=== PATIENT | female | born 1960 | race Caucasian/White ===

== ENCOUNTER 2016-04-11 15:45 | Emergency (ER) | payer BC ==
[2016-04-11 16:02] VITALS: BP 136/79
--- NOTE | 2016-04-11 16:38 | UC ---
Throat Pain/Nasal Kranthi HPI - HPI Summary HPI Summary: complaint of nasal congestion and cough that started 12 days ago started with a sore throat which resolved for the last 3 days is having more sinus congestion pain in her face and pressure in the front of her head sometimes her ears are painful intermittent headaches denies fever and chills taking ibuprofen and nurys seltzer plus without much relief. - History of Current Complaint Chief Complaint: UCGeneralIllness Stated Complaint: SINUS COMPLAINT Time Seen by Provider: 04/11/16 16:31 Hx Obtained From: Patient - Allergies/Home Medications Allergies/Adverse Reactions: Allergies Allergy/AdvReac Type Severity Reaction Status Date / Time Loratadine [From Claritin] Allergy Palpitation Verified 04/11/16 16:03 s Home Medications: Home Medications Ascorbic Acid TAB* [Vitamin C TAB*] 500 mg PO DAILY 04/11/16 [History Confirmed 04/11/16] Glucosamine Hydrochloride [Glucosamine] 500 mg PO DAILY 04/11/16 [History Confirmed 04/11/16] Multivitamins/Minerals TAB* [Theragran/minerals TAB*] 1 tab PO DAILY 04/11/16 [ History Confirmed 04/11/16] [place]-3 Fatty Acids [Fish Oil] 1,000 mg PO DAILY 04/11/16 [History Confirmed ] PMH/Surg Hx/FS Hx/Imm Hx Previously Healthy: Yes - Surgical History Surgical History: Yes Surgery Procedure, Year, and Place: hysterectomy 05/2015 - Family History Known Family History: Positive: Cardiac Disease - mother, Diabetes - mother Negative: Hypertension - Social History Occupation: Employed Full-time Lives: With Family Alcohol Use: None Substance Use Type: None Smoking Status (MU): Never Smoked Tobacco Review of Systems Constitutional: Negative Skin: Negative Eyes: Negative ENT: Ear Ache, Nasal Discharge Respiratory: Cough Cardiovascular: Negative Gastrointestinal: Negative Genitourinary: Negative Motor: Negative Neurovascular: Negative Musculoskeletal: Negative Neurological: Negative Psychological: Negative All Other Systems Reviewed And Are Negative: Yes Physical Exam Triage Information Reviewed: Yes Appearance: No Pain Distress, Well-Nourished Vital Signs: Initial Vital Signs Temp 98.3 F 04/11/16 15:57 Pulse 74 04/11/16 15:57 Resp 16 04/11/16 15:57 BP 136/79 04/11/16 15:57 Pulse Ox 99 04/11/16 15:57 Vital Signs Reviewed: Yes Eyes: Positive: Conjunctiva Clear ENT: Positive: Pharyngeal erythema, Nasal congestion, Nasal drainage, TMs normal , Other: - frontal and maxillary sinus tenderness. Negative: TM red Neck: Positive: Supple, No Lymphadenopathy Respiratory: Positive: Lungs clear, Normal breath sounds, No respiratory distress Cardiovascular: Positive: RRR, No Murmur Abdomen Description: Positive: Nontender, Soft Bowel Sounds: Positive: Present Musculoskeletal: Positive: No Edema Neurological: Positive: Alert Psychological Exam: Normal Skin Exam: Normal Throat Pain/Nasal Course/Dx - Course Course Of Treatment: exam completed. will treat for sinusitis d/t sinus tenderness and length of illness - Differential Dx/Diagnosis Differential Diagnosis/HQI/PQRI: Otitis Media, Sinusitis, URI Provider Diagnoses: sinusitis Discharge - Discharge Plan Condition: Stable Disposition: HOME Prescriptions: Amoxicillin/Clavulanate TAB* [Augmentin TAB 875*] 875 mg PO BID #20 tab Patient Education Materials: Sinusitis (ED) Referrals: [facility] [Outside] Additional Instructions: Start antibiotic as directed Increase fluids and rest Take acetaminophen or ibuprofen for fever or pain Please review your discharge instructions. If your symptoms do not improve please call your primary care provider or return to urgent care
== END 2016-04-11 17:03 | disposition home or self-care (01) ==
LOC: UCCORT 15:45
DX: J32.9 Chronic sinusitis, unspecified (principal); Z88.8 Allergy status to other drugs, medicaments and biological substances
CPT/HCPCS: 99202; G0463